=== PATIENT | male | born 1965 | race Caucasian/White ===

== ENCOUNTER 2020-04-06 12:51 | Inpatient (IN) | payer OTHER, SELFPAY ==
[2020-04-06] VITALS (7 sets, daily range): BP systolic 118–161; BP diastolic 71–96; PULSE 81–89; RESP 16–18; TEMP 36.2–36.9; O2SAT 94–97; BMI 30.4
--- NOTE | ~2020-04-06 | US_ITS ---
EXAMINATION: US EXTRACRANIAL CAROTID DUPLEX, BILATERAL CLINICAL INFORMATION: TIA. Evaluate for carotid stenosis. COMPARISON: None TECHNIQUE: Real-time ultrasound and Doppler techniques (integrating B-mode 2-D vascular images, Doppler spectral analysis and color-flow Doppler imaging) were utilized to interrogate the extracranial carotid arteries, the vertebral arteries and proximal subclavian arteries bilaterally. The degree of stenosis is determined by criteria similar to NASCET. FINDINGS: Right Side: 1. There is mild atherosclerotic plaque seen in the bifurcation/proximal ICA region. 2. The common carotid artery PSV proximally is 166 cm/s and distally 9 0 cm/s. 3. The proximal internal carotid artery velocities are 94 cm/s systolic and 34 cm/s diastolic. 4. The proximal external carotid artery PSV is 128 cm/s. 5. The vertebral artery shows antegrade flow. 6. The subclavian artery waveforms are artery waveforms are normal. Left Side: 1. There is mild atherosclerotic plaque seen in the bifurcation/proximal ICA region. 2. The common carotid artery PSV proximally is 151 cm/s and distally 107 cm/s. 3. The proximal internal carotid artery velocities are 68 cm/s systolic and 26 cm/s diastolic. 4. The proximal external carotid artery PSV is 116 cm/s. 5. The vertebral artery shows antegrade flow. 6. The subclavian artery waveforms are normal. US/US carotid duplex BI IMPRESSION: 1. RIGHT: Mild atherosclerotic plaque. Mild 0-49% right ICA stenosis by peak systolic velocity criteria. 2. LEFT: Mild atherosclerotic plaque. Mild 0-49% left ICA stenosis by peak systolic velocity criteria.
--- NOTE | ~2020-04-06 | CT_ITS ---
EXAMINATION: CT HEAD WITHOUT CONTRAST CLINICAL INFORMATION: Left arm numbness and vision changes. Symptoms have resolved. COMPARISON: Previous head CT November 2014 TECHNIQUE: Contiguous axial imaging was performed from the skull base to vertex without intravenous administration of contrast. This CT examination was performed using dose optimization techniques as appropriate, variously including the following: *Automated exposure control *Adjustment of mA and/or kV according to patient size (this includes techniques or standardized protocols for targeted exams where dose is matched to indication/reason for exam; i.e. extremities or head) *Use of iterative reconstruction technique DLP: 780 mGy-cm FINDINGS: There is no evidence of acute intracranial hemorrhage or territorial infarction. No abnormal mass effect or midline shift is seen. Alves to white matter differentiation is well preserved. No extra-axial fluid collections are identified. The ventricles are normal in size. There is no abnormal attenuation within the brain parenchyma. The osseous structures and soft tissues are normal. The mastoid air cells and visualized portions of the paranasal sinuses are well aerated. CT/CT head/brain wo con IMPRESSION: Unremarkable exam.
--- NOTE | ~2020-04-06 | MR_ITS ---
EXAMINATION: MR BRAIN WITHOUT CONTRAST CLINICAL INFORMATION: Left arm numbness. Stroke. COMPARISON: CT head from 04/06/2020. TECHNIQUE: MRI of the brain was obtained using routine sequences without contrast. FINDINGS: No focal restricted diffusion is demonstrated to suggest acute or subacute cerebral ischemia. No evidence of acute or chronic hemorrhagic products on heme-sensitive imaging. Nonspecific scattered periventricular and deep white matter T2 FLAIR hyperintensities. Chronic lacunar infarct of the left central maude. The ventricles are normal in morphology and size. No abnormal mass effect. No midline shift. Normal appearance of the pituitary gland. Normal positioning of the cerebellar tonsils. Normal arterial and venous vascular flow voids are present. Normal, homogeneous marrow signal. Mild mucosal thickening of the paranasal sinuses. Mucous retention cyst within the bilateral maxillary sinuses. No signal abnormalities within the mastoids. MR/MR head/brain wo con IMPRESSION: 1. No acute intracranial abnormalities. 2. Nonspecific mild underlying white matter change most commonly seen with underlying microangiopathy. Chronic lacunar infarct of the left central maude.
--- NOTE | 2020-04-06 13:19 | ED.GENADULT ---
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 This did not involve weakness he was always able to move and use his left arm and this resolved after 15-20 minutes. It was associated with a feeling of blurriness and floaters in his visual zacarias, he is not sure if it was 1 eye or both eyes he was able to see throughout the 15-20 minutes, he also felt lightheaded and dizzy during the episode It is now fully resolved and he is back to his normal vision, normal balance and normal feeling and sensation in his left arm It did not involve his left leg, he had no headache he had no trouble forming words and there was no facial asymmetry Patient is on blood thinners he is taking Xarelto for recent pulmonary embolus Patient does have history of CVA in the past <ITZEL Ha Last Filed: 04/06/20 17:14> Related Data Home medications: Home Medications Medication Instructions Recorded Confirmed Lactobacillus rhamnosus GG 1 cap PO BID 04/06/20 04/06/20 [Culturelle] apixaban [Eliquis] 10 mg PO BID 04/06/20 04/06/20 cefuroxime axetil 500 mg PO BID 04/06/20 04/06/20 <ITZEL Ha Last Filed: 04/06/20 17:14> Allergies/adverse reactions: Allergies Allergy/AdvReac Type Severity Reaction Status Date / Time No Known Allergies Allergy Unverified 10/31/19 18:58 [No Known Allergies*] <ITZEL Ha Last Filed: 04/06/20 17:14> Review of Systems Review of Systems: Positive for left upper extremity tingling and numbness that resolved associated with dizziness and vision changes which also resolved Negatives are no fever no chills no weakness no confusion no difficulty forming words no headache no neck pain no chest pain no shortness of breath, no exertional symptoms no abdominal pain no nausea no vomiting no leg weakness no changes to bowel or bladder no incontinence no rash <ITZEL Ha - Last Filed: 04/06/20 17:14> Yes all other systems are reviewed and are negative <ITZEL Ha - Last Filed: 04/06/20 17:14> [facility] Past Medical History Attestation statement: The following information was validated with the patient. 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 Pulmonary embolism Stroke <ITZEL Ha - Last Filed: 04/06/20 17:14> Social History Social History: Social History Advance Directives: No Advance Directives Information Provided: No <ITZEL Ha - Last Filed: 04/06/20 17:14> Physical Exam Vital Signs: Vital Signs: Last Vital Signs Temp 98.0 F 04/06/20 13:45 Pulse 81 04/06/20 15:22 Resp 18 04/06/20 15:22 BP 123/74 04/06/20 15:22 Pulse Ox 96 04/06/20 15:22 Body Mass Index 30.4 <ITZEL Ha - Last Filed: 04/06/20 17:14> Vital Signs: Last Vital Signs Temp 98.0 F 04/06/20 13:45 Pulse 81 04/06/20 15:22 Resp 18 04/06/20 15:22 BP 123/74 04/06/20 15:22 Pulse Ox 96 04/06/20 15:22 Body Mass Index 30.4 <Hai Lundy MD - Last Filed: 04/06/20 16:23> General appearance is no acute distress comfortable with no facial asymmetry speaking full sentences clearly, comfortable and cooperative The head is normocephalic atraumatic The pharynx is clear The neck is supple The chest is clear to auscultation bilaterally The heart rate and rhythm regular no murmur heard Abdomen is soft nontender Extremities full range of motion x4 Neuro speech and comprehension are normal, no facial asymmetry, A&O x3, balance and gait are normal, cerebellar exam is normal, cranial nerves intact as examine, motor is 5/5 x4 and sensation is intact and symmetrical in upper and lower extremities <ITZEL Ha - Last Filed: 04/06/20 17:14> NIH Stroke Scale Level of Consciousness: Alert <ITZEL Ha - Last Filed: 04/06/20 17:14> Level of Consciousness Questions: Answers both questions correctly <ITZEL Ha - Last Filed: 04/06/20 17:14> Level of Consciousness Commands: Performs both tasks correctly <ITZEL Ha - Last Filed: 04/06/20 17:14> Best Gaze: Normal <ITZEL Ha - Last Filed: 04/06/20 17:14> Visual: No visual loss <ITZEL Ha - Last Filed: 04/06/20 17:14> Motor Arm (Right): No drift <ITZEL Ha - Last Filed: 04/06/20 17:14> Motor Arm (Left): No drift <ITZEL Ha - Last Filed: 04/06/20 17:14> Motor Leg (Right): No drift <ITZEL Ha - Last Filed: 04/06/20 17:14> Motor Leg (Left): No drift <ITZEL Ha - Last Filed: 04/06/20 17:14> Limb Ataxia: Absent <ITZEL Ha - Last Filed: 04/06/20 17:14> Sensory: Normal <ITZEL Ha - Last Filed: 04/06/20 17:14> Best Language: No aphasia <ITZEL Ha - Last Filed: 04/06/20 17:14> Dysarthia: Normal <ITZEL Ha - Last Filed: 04/06/20 17:14> Extinction and Inattention: No abnormality <ITZEL Ha - Last Filed: 04/06/20 17:14> Course Course Course Narrative: I have discussed the case and management with the BRIANA <Hai Lundy MD - Last Filed: 04/06/20 16:23> Reevaluation(s) Reevaluation #1: I agree with the history. My physical exam is well developed well nourished, normal cephalic, PERRL, EOMI, normal pharynx, supple neck, lungs clear, CV RRR, abdomen nontender, Neuro intact and nonfocal, psychiatric at baseline. NIH stroke scale 0 at the current time. with recent hypercoagulation due to COVID and symptoms sound like TIA will admit to hospitalist <aHi Lundy MD - Last Filed: 04/06/20 16:23> Medical Decision Making MDM Narrative Medical decision making narrative: Patient remains comfortable stable and unchanged throughout ER visit, concerned for TIA and patient with history of prior CVA who had resolved symptoms of left arm numbness and vision changes was admitted to the hospital for TIA <ITZEL Ha - Last Filed: 04/06/20 17:14> Lab Data Lab results reviewed: Yes I reviewed the patient's lab results. <ITZEL Ha - Last Filed: 04/06/20 17:14> Result diagrams: : 04/06/20 13:53 04/06/20 13:53 <ITZEL Ha - Last Filed: 04/06/20 17:14> Labs: Lab Results 04/06/20 04/06/20 04/06/20 Range/Units 13:53 13:53 13:53 WBC 7.4 (4.8-10.8) X10*3/uL RBC 4.80 (4.60-5.80) X10*6/uL Hgb 13.1 L (14.0-18.0) g/dl Hct 40.1 L (42-52) % MCV 83.5 (80-98) fL MCH 27.3 (27.0-33.0) pg MCHC 32.7 (31.0-36.0) g/dl RDW 12.6 (11.0-16.0) % Plt Count 485 H (160-400) X10*3/uL MPV 9.7 (9.4-12.4) fL Immature Gran % (Auto) 0.4 (0.0-0.4) % Neut % (Auto) 64.7 (45-73) % Lymph % (Auto) 25.6 (20-40) % [place] % (Auto) 7.6 (2-11) % Eos % (Auto) 1.4 (0-4) % Baso % (Auto) 0.3 (0-2) % Lymph # (Auto) 1.9 (1.2-4.9) X10*3/uL [place] # (Auto) 0.6 (0.1-1.2) X10*3/uL Eos # (Auto) 0.1 (0.0-0.4) X10*3/uL Baso # (Auto) 0.0 (0.0-0.2) X10*3/uL Abs Immat Gran (auto) 0.03 (0.00-0.03) X10*3/uL Absolute Neuts (auto) 4.8 (2.0-8.3) X10*3/uL Absolute Nucleated RBC 0.000 (0.0-0.012) X10*3/uL Nucleated RBC % (auto) 0.0 (0.0-0.2) /100WBC PT 14.3 H (10.8-13.0) SEC INR 1.2 H (0.9-1.1) APTT 39.5 H (24.1-38.0) SEC Sodium 142 (135-145) mmol/L Potassium 5.0 (3.3-5.1) mmol/L Chloride 104 (96-108) mmol/L Carbon Dioxide 27 (22-29) mmol/L Anion Gap 16 (12-20) BUN 16 (9-16) mg/dL Creatinine 0.83 (0.5-1.4) mg/dL Estim Creat Clear Calc 140.2 Estimated GFR > 60 Random Glucose 100 (60-115) mg/dL Calcium 9.2 (8.4-10.2) mg/dL Troponin I High Sens (<3.5-35.0) ng/L 04/06/20 Range/Units 13:53 WBC (4.8-10.8) X10*3/uL RBC (4.60-5.80) X10*6/uL Hgb (14.0-18.0) g/dl Hct (42-52) % MCV (80-98) fL MCH (27.0-33.0) pg MCHC (31.0-36.0) g/dl RDW (11.0-16.0) % Plt Count (160-400) X10*3/uL MPV (9.4-12.4) fL Immature Gran % (Auto) (0.0-0.4) % Neut % (Auto) (45-73) % Lymph % (Auto) (20-40) % [place] % (Auto) (2-11) % Eos % (Auto) (0-4) % Baso % (Auto) (0-2) % Lymph # (Auto) (1.2-4.9) X10*3/uL [place] # (Auto) (0.1-1.2) X10*3/uL Eos # (Auto) (0.0-0.4) X10*3/uL Baso # (Auto) (0.0-0.2) X10*3/uL Abs Immat Gran (auto) (0.00-0.03) X10*3/uL Absolute Neuts (auto) (2.0-8.3) X10*3/uL Absolute Nucleated RBC (0.0-0.012) X10*3/uL Nucleated RBC % (auto) (0.0-0.2) /100WBC PT (10.8-13.0) SEC INR (0.9-1.1) APTT (24.1-38.0) SEC Sodium (135-145) mmol/L Potassium (3.3-5.1) mmol/L Chloride (96-108) mmol/L Carbon Dioxide (22-29) mmol/L Anion Gap (12-20) BUN (9-16) mg/dL Creatinine (0.5-1.4) mg/dL Estim Creat Clear Calc Estimated GFR Random Glucose (60-115) mg/dL Calcium (8.4-10.2) mg/dL Troponin I High Sens < 3.5 (<3.5-35.0) ng/L <ITZEL Ha - Last Filed: 04/06/20 17:14> Lab Results 04/06/20 04/06/20 04/06/20 Range/Units 13:53 13:53 13:53 WBC 7.4 (4.8-10.8) X10*3/uL RBC 4.80 (4.60-5.80) X10*6/uL Hgb 13.1 L (14.0-18.0) g/dl Hct 40.1 L (42-52) % MCV 83.5 (80-98) fL MCH 27.3 (27.0-33.0) pg MCHC 32.7 (31.0-36.0) g/dl RDW 12.6 (11.0-16.0) % Plt Count 485 H (160-400) X10*3/uL MPV 9.7 (9.4-12.4) fL Immature Gran % (Auto) 0.4 (0.0-0.4) % Neut % (Auto) 64.7 (45-73) % Lymph % (Auto) 25.6 (20-40) % [place] % (Auto) 7.6 (2-11) % Eos % (Auto) 1.4 (0-4) % Baso % (Auto) 0.3 (0-2) % Lymph # (Auto) 1.9 (1.2-4.9) X10*3/uL [place] # (Auto) 0.6 (0.1-1.2) X10*3/uL Eos # (Auto) 0.1 (0.0-0.4) X10*3/uL Baso # (Auto) 0.0 (0.0-0.2) X10*3/uL Abs Immat Gran (auto) 0.03 (0.00-0.03) X10*3/uL Absolute Neuts (auto) 4.8 (2.0-8.3) X10*3/uL Absolute Nucleated RBC 0.000 (0.0-0.012) X10*3/uL Nucleated RBC % (auto) 0.0 (0.0-0.2) /100WBC PT 14.3 H (10.8-13.0) SEC INR 1.2 H (0.9-1.1) APTT 39.5 H (24.1-38.0) SEC Sodium 142 (135-145) mmol/L Potassium 5.0 (3.3-5.1) mmol/L Chloride 104 (96-108) mmol/L Carbon Dioxide 27 (22-29) mmol/L Anion Gap 16 (12-20) BUN 16 (9-16) mg/dL Creatinine 0.83 (0.5-1.4) mg/dL Estim Creat Clear Calc 140.2 Estimated GFR > 60 Random Glucose 100 (60-115) mg/dL Calcium 9.2 (8.4-10.2) mg/dL Troponin I High Sens (<3.5-35.0) ng/L 04/06/20 Range/Units 13:53 WBC (4.8-10.8) X10*3/uL RBC (4.60-5.80) X10*6/uL Hgb (14.0-18.0) g/dl Hct (42-52) % MCV (80-98) fL MCH (27.0-33.0) pg MCHC (31.0-36.0) g/dl RDW (11.0-16.0) % Plt Count (160-400) X10*3/uL MPV (9.4-12.4) fL Immature Gran % (Auto) (0.0-0.4) % Neut % (Auto) (45-73) % Lymph % (Auto) (20-40) % [place] % (Auto) (2-11) % Eos % (Auto) (0-4) % Baso % (Auto) (0-2) % Lymph # (Auto) (1.2-4.9) X10*3/uL [place] # (Auto) (0.1-1.2) X10*3/uL Eos # (Auto) (0.0-0.4) X10*3/uL Baso # (Auto) (0.0-0.2) X10*3/uL Abs Immat Gran (auto) (0.00-0.03) X10*3/uL Absolute Neuts (auto) (2.0-8.3) X10*3/uL Absolute Nucleated RBC (0.0-0.012) X10*3/uL Nucleated RBC % (auto) (0.0-0.2) /100WBC PT (10.8-13.0) SEC INR (0.9-1.1) APTT (24.1-38.0) SEC Sodium (135-145) mmol/L Potassium (3.3-5.1) mmol/L Chloride (96-108) mmol/L Carbon Dioxide (22-29) mmol/L Anion Gap (12-20) BUN (9-16) mg/dL Creatinine (0.5-1.4) mg/dL Estim Creat Clear Calc Estimated GFR Random Glucose (60-115) mg/dL Calcium (8.4-10.2) mg/dL Troponin I High Sens < 3.5 (<3.5-35.0) ng/L <Hai Lundy MD - Last Filed: 04/06/20 16:23> Imaging Data CT scan - head: Radiologist's impression: FINDINGS: There is no evidence of acute intracranial hemorrhage or territorial infarction. No abnormal mass effect or midline shift is seen. Alves to white matter differentiation is well preserved. No extra-axial fluid collections are identified. The ventricles are normal in size. There is no abnormal attenuation within the brain parenchyma. The osseous structures and soft tissues are normal. The mastoid air cells and visualized portions of the paranasal sinuses are well aerated. CT/CT head/brain wo con IMPRESSION: Unremarkable exam. <ITZEL Ha - Last Filed: 04/06/20 17:14> ECG Data Interpretation: EKG was normal sinus rhythm, QT was normal, no acute ST-T changes, NE interval was normal <ITZEL Ha - Last Filed: 04/06/20 17:14> Discharge Plan Discharge Clinical Impression: Brain TIA <ITZEL Ha - Last Filed: 04/06/20 17:14> Patient Disposition: Admitted As Inpatient <ITZEL aH - Last Filed: 04/06/20 17:14>
--- NOTE | 2020-04-06 13:21 | ECG_ITS ---
Test Reason : DIZZYNESS Blood Pressure : / mmHG Vent. Rate : 083 BPM Atrial Rate : 083 BPM P-R Int : 166 ms QRS Dur : 084 ms QT Int : 386 ms P-R-T Axes : 049 -30 023 degrees QTc Int : 453 ms Normal sinus rhythm Left axis deviation Abnormal ECG When compared with ECG of 03-DEC-2014 20:33, No significant change was found Referred By: Jeremias Kohler Electronically Signed By:SANTOS LOPEZ MD
--- NOTE | 2020-04-06 13:40 | PC.NURSE ---
No unlat neuro deficits at this time. reports left arm numbness and changes in vision at 1205 but resolved almost completely at 1230 whem EMS arrived. Pt also reports hemoptysis which has been improving. on eliquis. nsr on monitor. aware of plan of care. will ring if sx return.
[2020-04-06 14:05] LABS: MANUAL DIFF FLAG NO
[2020-04-06 14:06] LABS: Hematocrit 40.1 % (42-52); Hemoglobin 13.1 g/dl (14.0-18.0); Mean Corpuscular Hemoglobin 27.3 pg (27.0-33.0); Mean Corpuscular Volume 83.5 fL (80-98); White Blood Count 7.4 X10*3/uL (4.8-10.8)
[2020-04-06 14:07] LABS: Basophils Percent Auto 0.3 % (0-2); Eosinophils Absolute Auto 0.1 X10*3/uL (0.0-0.4); Eosinophils Percent Auto 1.4 % (0-4); Imm Gran Abs Auto 0.03 X10*3/uL (0.00-0.03); Imm Gran Pct Auto 0.4 % (0.0-0.4); Lymphocytes Absolute Auto 1.9 X10*3/uL (1.2-4.9); Lymphocytes Percent Auto 25.6 % (20-40); Mean Corpuscular HGB Conc 32.7 g/dl (31.0-36.0); Mean Platelet Volume 9.7 fL (9.4-12.4); Monocytes Absolute Auto 0.6 X10*3/uL (0.1-1.2); Monocytes Percent Auto 7.6 % (2-11); Neutrophils Absolute Auto 4.8 X10*3/uL (2.0-8.3); Neutrophils Percent Auto 64.7 % (45-73); Platelet Count 485 X10*3/uL (160-400); Red Cell Distribution Width 12.6 % (11.0-16.0)
[2020-04-06 14:13] LABS: INTERNATIONAL NORM RATIO 1.2 (0.9-1.1); Prothrombin Time 14.3 SEC (10.8-13.0)
[2020-04-06 14:15] LABS: Partial Thromboplastin Time 39.5 SEC (24.1-38.0)
[2020-04-06 14:51] LABS: Anion Gap 16 (12-20); Blood Urea Nitrogen 16 mg/dL (9-16); Calcium 9.2 mg/dL (8.4-10.2); Carbon Dioxide 27 mmol/L (22-29); Chloride 104 mmol/L (96-108); Creatinine Clr Calc Pharmacy 140.2; Estimated Glomerular Filt Rate > 60; Glucose Random 100 mg/dL (60-115); Sodium 142 mmol/L (135-145)
[2020-04-06 14:55] LABS: Troponin-I High Sensitivity < 3.5 ng/L (<3.5-35.0)
--- NOTE | 2020-04-06 15:23 | PC.NURSE ---
denies any neuro changes. this rn to consult PA regarding INR 1.2
--- NOTE | 2020-04-06 16:15 | PC.NURSE ---
still asymptomatic. agreeable to admission. doc james at bedside.
--- NOTE | 2020-04-06 17:17 | PM.IMHP ---
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 patient denies any fever chills headache chest pain or shortness of breath. 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 for which he underwent thyroidectomy Review of Systems Constitutional: Constitutional: Denies weakness Eyes: Eyes: Denies no additional eye complaints ENT: Reports dizziness Cardiovascular: Cardiovascular: Denies leg edema and Denies dyspnea Respiratory: Respiratory: Denies dyspnea Gastrointestinal: Gastrointestinal: Denies vomiting Musculoskeletal: Musculoskeletal: Reports no additional musculoskeletal complaints Neurologic: Reports dizziness, Denies focal weakness and Denies weakness [facility] Medical History (Updated 04/07/20 @ 16:55 by Yuli Powell MD) Alcohol dependence Anxiety COVID-19 Depression Goiter High cholesterol 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 Pulmonary embolism Stroke Family History (Updated 04/06/20 @ 17:27 by Nicholas Rios MD) Other HTN (hypertension) Surgical History History of palate surgery Social History Household Members: Spouse Housing: House Do you presently have visiting nurse or other home services: Yes Alcohol intake: former Smoking Status: Former smoker Smoked in Last 30 Days: No Use of substances other than those prescribed or required for medical reasons: Yes Substance Use Type Other:: edible a few times a year Substance Use Frequency: Occasionally Currently Displaying Signs/Symptoms of Drug Intoxication Withdrawal: No Have you been hit, kicked, punched, or otherwise hurt by someone within the past year? If so, by whom?: No Do you feel safe in your current relationship?: Yes Is there a partner from a previous relationship who is making you feel unsafe now?: No Are you made to feel afraid or neglected: No Advance Directives: No Advance Directives Information Provided: No Do you have thoughts of harming others: None Do you have a plan to hurt others: No Plan Recently lost weight without trying: No service: No Current occupational status: employed Meds Allergies Allergy/AdvReac Type Severity Reaction Status Date / Time No Known Allergies Allergy Unverified 10/31/19 18:58 [No Known Allergies*] Active Medications: Current Medications Generic Name Dose Route Start Last Admin Trade Name Freq PRN Reason Stop Dose Admin Pharmacy Consult 1 each 04/06/20 16:47 Consult Rx Perform Med Rec MISCELLANE ONCE PRN Consult order Home Medications Medication Instructions Recorded Confirmed Last Taken Type Culturelle 1 cap PO BID 04/06/20 04/06/20 04/06/20 History Eliquis 10 mg PO BID 04/06/20 04/06/20 04/06/20 08:00 History cefuroxime axetil 500 mg PO BID 04/06/20 04/06/20 04/06/20 16:55 History Physical Exam Vital Signs and Narrative: Vital Signs: Last Vital Signs Temp 98.0 F 04/06/20 13:45 Pulse 81 04/06/20 15:22 Resp 18 04/06/20 15:22 BP 123/74 04/06/20 15:22 Pulse Ox 96 04/06/20 15:22 Body Mass Index 30.4 Const: General: cooperative and no acute distress Orientation/consciousness: patient oriented x3 Eyes: General: appearance normal, both eyes and all related structures Neck: Yes normal visual inspection Resp: Effort & Inspection: normal respiratory effort Cardio: Jugular venous distension: no JVD Rate: regular rate Heart sounds: S1 normal heart sound present and S2 normal heart sound present GI: Palpation (GI): Soft to palpation Skin: General skin exam: no rashes or lesions noted Neuro: General: patient oriented x3 Motor exam (neuro): 5/5 motor strength present throughout Results Labs CBC and Chem 7: 04/07/20 05:36 04/07/20 05:36 Labs: Laboratory Results - last 24 hr 04/06/20 04/06/20 04/06/20 13:53 13:53 13:53 MCV 83.5 MCH 27.3 MCHC 32.7 RDW 12.6 Plt Count 485 H MPV 9.7 Immature Gran % (Auto) 0.4 Neut % (Auto) 64.7 Lymph % (Auto) 25.6 [place] % (Auto) 7.6 Eos % (Auto) 1.4 Baso % (Auto) 0.3 Lymph # (Auto) 1.9 [place] # (Auto) 0.6 Eos # (Auto) 0.1 Baso # (Auto) 0.0 Abs Immat Gran (auto) 0.03 Absolute Neuts (auto) 4.8 Absolute Nucleated RBC 0.000 Nucleated RBC % (auto) 0.0 PT 14.3 H INR 1.2 H APTT 39.5 H Anion Gap 16 Estim Creat Clear Calc 140.2 Estimated GFR > 60 Random Glucose 100 Calcium 9.2 Troponin I High Sens 04/06/20 13:53 MCV MCH MCHC RDW Plt Count MPV Immature Gran % (Auto) Neut % (Auto) Lymph % (Auto) [place] % (Auto) Eos % (Auto) Baso % (Auto) Lymph # (Auto) [place] # (Auto) Eos # (Auto) Baso # (Auto) Abs Immat Gran (auto) Absolute Neuts (auto) Absolute Nucleated RBC Nucleated RBC % (auto) PT INR APTT Anion Gap Estim Creat Clear Calc Estimated GFR Random Glucose Calcium Troponin I High Sens < 3.5 Imaging Radiologist's Impressions: Impressions Head CT 04/06/20 13:21 IMPRESSION: Unremarkable exam. Assessment and Plan (1) Brain TIA: Problem details: Unlikely to be TIA although with a history of recent Covid and hypercoagulability, this is a possibility although he is adequately anticoagulated with an requests Status: Acute (2) History of palate surgery: Status: Acute 55-year-old male presented with left arm numbness and tingling associated with blurry vision and dizziness that lasted for 15-20 minutes resolved now, CT head on admission shows no acute abnormality patient was admitted for for TIA left arm numbness associated with blurry vision and dizziness rule out stroke versus TIA CT head on admission shows no acute abnormality will get neurology evaluation will start statin continue Eliquis will get carotid ultrasound monitor neuro check lipid profile Recently diagnosed with pulmonary embolism after COVID continue Eliquis history of hyperlipidemia taken off from statin history of palatine cancer status post surgery DVT prophylaxis with Eliquis patient wishes to be full code
[2020-04-06 18:02] LABS: COVID-19 Test Negative (Negative); IDNOW Serial# 9DD0AD1C
--- NOTE | 2020-04-06 19:55 | PC.NURSE ---
attempted to give report. elidia de leon.
--- NOTE | 2020-04-06 20:07 | PC.NURSE ---
[facility]
[2020-04-06] MEDS: Apixaban 5 MG TABLET 10 MG PO (20:20)
[2020-04-07 03:28] VITALS: BP 127/82; PULSE 82; RESP 18; TEMP 36.6; O2SAT 95
[2020-04-07 03:36] VITALS: BMI 30.7
[2020-04-07 06:57] LABS: MANUAL DIFF FLAG NO
[2020-04-07 07:09] LABS: Basophils Percent Auto 0.3 % (0-2); Eosinophils Absolute Auto 0.2 X10*3/uL (0.0-0.4); Eosinophils Percent Auto 2.2 % (0-4); Hematocrit 40.6 % (42-52); Hemoglobin 13.2 g/dl (14.0-18.0); Imm Gran Abs Auto 0.03 X10*3/uL (0.00-0.03); Imm Gran Pct Auto 0.4 % (0.0-0.4); Lymphocytes Absolute Auto 2.1 X10*3/uL (1.2-4.9); Lymphocytes Percent Auto 31.1 % (20-40); Mean Corpuscular HGB Conc 32.5 g/dl (31.0-36.0); Mean Corpuscular Hemoglobin 26.9 pg (27.0-33.0); Mean Corpuscular Volume 82.9 fL (80-98); Mean Platelet Volume 9.8 fL (9.4-12.4); Monocytes Absolute Auto 0.7 X10*3/uL (0.1-1.2); Monocytes Percent Auto 9.8 % (2-11); Neutrophils Absolute Auto 3.8 X10*3/uL (2.0-8.3); Neutrophils Percent Auto 56.2 % (45-73); Platelet Count 492 X10*3/uL (160-400); Red Cell Distribution Width 12.8 % (11.0-16.0); White Blood Count 6.7 X10*3/uL (4.8-10.8)
[2020-04-07 07:39] VITALS: BP 149/88; PULSE 84; RESP 16; TEMP 36.1; O2SAT 93
[2020-04-07 07:49] LABS: Anion Gap 16 (12-20); Blood Urea Nitrogen 16 mg/dL (9-16); Calcium 9.2 mg/dL (8.4-10.2); Carbon Dioxide 26 mmol/L (22-29); Chloride 105 mmol/L (96-108); Cholesterol 200 mg/dL; Creatinine Clr Calc Pharmacy 134.4; Estimated Glomerular Filt Rate > 60; Glucose Random 100 mg/dL (60-115); HDL Cholesterol 30 mg/dL; LDL Cholesterol Calculated 130 mg/dl; Potassium 4.8 mmol/L (3.3-5.1); Sodium 142 mmol/L (135-145); Triglycerides 202 mg/dL
--- NOTE | 2020-04-07 08:41 | MHC.CM.PN ---
pt lives c his in their home . he reports he is independent in his care. he works a job and drives a car. pt's will provide transport home. pt denies the need for vna at dc. dc plan is home no svcs. cm to cont. to follow.
[2020-04-07] MEDS: Apixaban 5 MG TABLET 10 MG PO (11:48)
[2020-04-07] MEDS: Atorvastatin Calcium 80 MG TABLET PO (11:48)
[2020-04-07 11:49] VITALS: BP 139/84; PULSE 90; RESP 16; TEMP 36.3; O2SAT 94
[2020-04-07] MEDS: LORazepam 2 MG/ML VIAL 0.5 MG IVPUSH (13:20)
[2020-04-07 15:23] VITALS: BP 134/71; PULSE 97; RESP 15; TEMP 36.5; O2SAT 95
--- NOTE | 2020-04-07 16:02 | MHC.STROKE ---
PATIENT VIA [facility] PRE-NOTIFIED AT 1245. ONSET OF LEFT ARM NUMBNESS AND VISUAL DISTURBANCE AT 1217. SYMPTOMS LASTED 20 MINUTES. FAST EXAM = 0, NO STROKE ALERT CALLED IN. I MET WITH THE PATIENT TODAY AND WE DISCUSSED HIS PMH AND RISK FACTORS. 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 HIS RECENT COVID+ HOSPITALIZATION FOR PNEUMONIA AND PE. ON ELIQUIS THEREFORE EXCLUDED FROM TPA. ALSO RESOLUTION OF SYMPTOMS. NO FURTHER SYMPTOMS SINCE ADMISSION. MRI DONE, NO ACUTE STROKE. HIS LDL IS 130 AND HE WILL START LIPITOR 40MG. 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 HE READ OVER THE STROKE BOOKLET AND I ANSWERED HIS QUESTIONS. I DID GO SEE HIM TWICE TODAY. NEUROLOGY CONSULT PENDING, THEN POSSIBLE DISCHARGE.
--- NOTE | 2020-04-07 16:51 | P.CNNE_ITS ---
History of Present Illness Data of Consult Service Date: 04/07/20 Primary Care Provider: Unknown Physician HPI Reason for consult: Transient visual disturbance and left hand numbness for 20 min. This is a 55-year-old man with a history of hyperlipidemia who was diagnosed with Covid about 3 weeks ago and was found to have a pleural effusion and pneumonia and pulmonary embolism and was put on anticoagulants. 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 There was no facial droop, speech problem or weakness. The episode lasted about 20 min. and subsided and he had some headache after. There is no previous history of migraine and no family history of migraine. He was brought to the emergency room he is already on Shirin Qwest. 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 His that carotid ultrasound did not show any hemodynamically significant disease and he feels back to normal. Review of Systems Eyes: Eyes: Reports no additional eye complaints ENT: Reports system reviewed and no additional complaints, except as documented and Reports Normal hearing present Cardiovascular: Cardiovascular: Reports no additional cardiovascular c omplaints Respiratory: Respiratory: Reports no additional respiratory complaints Gastrointestinal: Gastrointestinal: Reports no additional gastrointestinal complaints Genitourinary: Genitourinary: Reports no additional male genitourinary complaints Musculoskeletal: Musculoskeletal: Reports no additional musculoskeletal complaints Integumentary/Breasts: Skin/Breast: Reports system reviewed and no additional complaints, except as docu Neurologic: Reports as per HPI and Reports Normal hearing present Psychiatric: Psychiatric: Reports as per HPI Endocrine: Endocrine: Reports no additional endocrine complaints Hematologic/Lymphatic: Hematologic/Lymphatic: Reports no additional hematologic/lymphatic complaints Allergic/Immunologic: Allergic/Immunologic: Reports no additional allergic/immunologic complaints [facility] Past Medical History Medical History (Updated 04/07/20 @ 16:55 by Yuli Powell MD) Alcohol dependence Anxiety COVID-19 Depression Goiter High cholesterol 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 Pulmonary embolism Stroke Family History Family History (Updated 04/06/20 @ 17:27 by Nicholas Rios MD) Other HTN (hypertension) Surgical History Surgical History History of palate surgery Social History Social History Household Members: Spouse Housing: House Do you presently have visiting nurse or other home services: Yes Alcohol intake: former Smoking Status: Former smoker Smoked in Last 30 Days: No Use of substances other than those prescribed or required for medical reasons: Yes Substance Use Type Other:: edible a few times a year Substance Use Frequency: Occasionally Currently Displaying Signs/Symptoms of Drug Intoxication Withdrawal: No Have you been hit, kicked, punched, or otherwise hurt by someone within the past year? If so, by whom?: No Do you feel safe in your current relationship?: Yes Is there a partner from a previous relationship who is making you feel unsafe now?: No Are you made to feel afraid or neglected: No Advance Directives: No Advance Directives Information Provided: No Do you have thoughts of harming others: None Do you have a plan to hurt others: No Plan Recently lost weight without trying: No service: No Current occupational status: employed Meds Allergies Allergy/AdvReac Type Severity Reaction Status Date / Time No Known Allergies Allergy Unverified 10/31/19 18:58 [No Known Allergies*] Active Medications: Current Medications Generic Name Dose Route Start Last Admin Trade Name Freq PRN Reason Stop Dose Admin Apixaban 10 mg 04/06/20 21:00 04/07/20 11:48 Apixaban 5 Mg Tablet PO 10 mg BID KATTY Administration Atorvastatin Calcium 80 mg 04/07/20 09:00 04/07/20 11:48 Atorvastatin Calcium 80 Mg Tablet PO 80 mg DAILY KATTY Administration Pharmacy Consult 1 each 04/06/20 16:47 Consult Rx Perform Med Rec MISCELLANE ONCE PRN Consult order Home Medications Medication Instructions Recorded Confirmed Last Taken Type Lactobacillus rhamnosus GG 1 cap PO BID 04/06/20 04/06/20 04/06/20 History [Culturelle] apixaban [Eliquis] 10 mg PO BID 04/06/20 04/06/20 04/06/20 08:00 History cefuroxime axetil 500 mg PO BID 04/06/20 04/06/20 04/06/20 16:55 History Physical Exam Vital Signs: Vital Signs: Last Vital Signs Temp 97.7 F 04/07/20 15:23 Pulse 97 04/07/20 15:23 Resp 15 04/07/20 15:23 BP 134/71 04/07/20 15:23 Pulse Ox 95 04/07/20 15:23 Body Mass Index 30.7 Const: General: cooperative, comfortable, no acute distress, well developed, alert and awake Nutritional Appearance: well nourished Orientation/consciousness: oriented to person, oriented to place and oriented to time Limitations: no limitations HENMT: Head: Yes normal to inspection, Yes normocephalic and Yes atraumatic Ears: hearing grossly normal bilaterally General nose exam: Normal external nose present Face and sinus: Yes normal facial exam Mouth: Normal oral and palatal mucosa present Eyes: General: appearance normal, both eyes and all related structures Visual Zacarias: normal visual zacarias by confrontation Alignment and Position: alignment normal Periorbital: periorbital findings normal Eyelids: Yes eyelids normal Conjunctivae: conjunctivae normal Sclerae: sclerae normal Corneas: corneas normal Pupils: Equal, round and reactive pupils present and Pupil accommodation reflex normal EOM: EOMs intact bilaterally Direct Ophthalmoscopy: normal light reflex Neck: Neck: Yes normal visual inspection, Yes full ROM and Yes no meningeal signs Thyroid: Thyroid normal Carotids: normal carotid upstroke and bounding pulses Chest: Chest palpation & inspection: normal inspection of the chest Resp: Effort & Inspection: normal respiratory effort Auscultation: clear to auscultation bilaterally Cardio: Rate: regular rate Rhythm: regular rhythm Heart sounds: S1 normal heart sound present and S2 normal heart sound present Peripheral pulses: Peripheral pulses 2+ throughout GI: Inspection: Yes normal to inspection Percussion: Yes normal to percussion Auscultation: normal bowel sounds Rectal Exam - Male: Yes deferred Back/Spine/Pelvis: Cervical Spine: normal cervical lordosis and cervical ROM normal Thoracic/Lumbar Spine: thoracic and lumbar spine normal to inspection Skin: General skin exam: no rashes or lesions noted Neuro: General: oriented to person, oriented to place, oriented to time, gait normal, tone normal, moves all extremities, Normal light touch and pain sensation, no meningeal signs, no focal motor deficits, CN's II-XI intact bilaterally, normal sensation to monofilament and deep tendon reflexes 2+ bilaterally Cranial nerves: Yes CN's II-XII intact bilaterally, Yes Equal, round and reactive pupils present, Yes Bilaterally intact EOM present, Yes Nystagmus not present, Yes Normal facial strength present, Yes Midline tongue present, Yes Normal gag reflex present, Yes Symmetric palate elevation present, Yes Normal hearing present and Yes Ability to bilaterally rotate head present Cognition (Neuro): normal cognition Speech: Other speech findings present (Neuro) Gait exam (Neuro): Normal gait present Motor exam (neuro): 5/5 motor strength present throughout, Pronator motor function not present, no tremor noted, no asterixis, Motor fasciculations not present, Normal motor muscle tone present throughout and Motor abnormalities not present Sensory Exam: Bilaterally intact graphesthesia Deep tendon reflexes (DTR's): Right triceps reflex intensity grade: 2+, Left triceps reflex intensity grade: 2+, Rt Biceps (C5, C6): 2+, Left biceps reflex intensity grade: 2+, Right brachioradialis reflex intensity grade: 2+, Left brachioradialis reflex intensity grade: 2+, Right patellar reflex intensity grade: 2+, Left patellar reflex intensity grade: 2+, Right ankle reflex intensity grade: 2+ and Left ankle reflex intensity grade: 2+ Plantar Reflex Responses: downgoing: right, left and bilateral Coordination: [id number] test normal, [id number] test normal, tandem gait normal and Romberg test negative Pupils: Normal pupillary reactivity/response: bilateral Extrem: General: Yes normal to inspection, Yes normal exam except as noted and Yes no pedal edema Psych: Appearance: grossly normal Mental Status: mental status grossly normal Speech and movement: Normal speech and movement present and Clear speech present Affect: normal affect Attitude: cooperative Thought process: Normal thought process present Results Labs CBC & Chem 7: 04/07/20 05:36 04/07/20 05:36 Labs: Short CBC 04/07/20 Range/Units 05:36 WBC 6.7 (4.8-10.8) X10*3/uL Hgb 13.2 L (14.0-18.0) g/dl Hct 40.6 L (42-52) % Plt Count 492 H (160-400) X10*3/uL BMP 04/07/20 05:36 Sodium 142 Potassium 4.8 Chloride 105 Carbon Dioxide 26 BUN 16 Creatinine 0.87 Calcium 9.2 Assessment and Plan (1) Migraine equivalent: Problem details: History of visual disturbance and transient left arm numbness along with the headache is highly suggestive of a migraine equivalent. TIA cannot be ruled out. Status: Acute (2) Brain TIA: Problem details: Unlikely to be TIA although with a history of recent Covid and hypercoagulability, this is a possibility although he is adequately anticoagulated with an requests Status: Acute No further workup necessary. Continue statins and aspirin 81 mg. (3) Pulmonary embolism: Status: Acute Continue anticoagulation Procedures Date of Service Date of Service: 04/07/20
--- NOTE | 2020-04-07 17:29 | P.DS_ITS ---
DS: Providers Provider Date of Service: 04/09/20 Date of admission: 04/06/20 17:26 Primary care physician: Unknown Physician Consults: 04/06/20 17:26 Consult to Neurology Routine Consulting Provider: Leo Wilcox Reason for consultation: TIA DS: Diagnosis Discharge Diagnosis (1) Migraine equivalent: Status: Acute Problem details: History of visual disturbance and transient left arm numbness along with the headache is highly suggestive of a migraine equivalent. TIA cannot be ruled out. (2) Brain TIA: Status: Acute Problem details: Unlikely to be TIA although with a history of recent Covid and hypercoagulability, this is a possibility although he is adequately anticoagulated with an requests (3) Pulmonary embolism: Status: Acute DS: Medications Discharge Medications Home Medications: Home Medications Medication Instructions Recorded Confirmed Culturelle 1 cap PO BID 04/06/20 04/06/20 Eliquis 10 mg PO BID 04/06/20 04/06/20 cefuroxime axetil 500 mg PO BID 04/06/20 04/06/20 Previous Rx's Medication Instructions Recorded atorvastatin [Lipitor] 40 mg PO BEDTIME #30 tab 04/07/20 DS: Summary Hospital Course Hospital Course: HPI 55 y o m presented with left arm numbness that lasted for 15-20 minutes, 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 patient denies any fever chills headache chest pain or shortness of breath. 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 for which he underwent thyroidectomy hospital course 55-year-old male admitted with episode of left arm numbness and blurred vision, CT head on admission shows no acute infarct, patient was admitted to telemetry for possible TIA versus stroke, patient's symptoms were resolved, carotid ultrasound shows no significant stenosis, MRI brain shows no acute infarct, patient was seen by Neurology reconciled possible TIA from COVID hypercoagulability, lipid profile was checked found to have elevated cholesterol and LDL, patient was started on statins, patient was stable discharged home on statin and continued on Eliquis for pulmonary embolism, patient will follow-up PCP as outpatient Time Spent with Patient Time attestation: Total time spent providing and/or coordinating discharge services: Discharge coordination time: Greater than 30 minutes Quality: Stroke Pt Provided Written Stroke Discharge Instructions: Patient given written information Physical Exam Vital Signs: Vital Signs: Last Vital Signs Temp 97.7 F 04/07/20 15:23 Pulse 97 04/07/20 15:23 Resp 15 04/07/20 15:23 BP 134/71 04/07/20 15:23 Pulse Ox 95 04/07/20 15:23 Body Mass Index 30.7 DS: Data Data Completed and Pending Labs on day of discharge: Laboratory Results - last 24 hr 04/06/20 04/07/20 04/07/20 17:26 05:36 05:36 WBC 6.7 RBC 4.90 Hgb 13.2 L Hct 40.6 L MCV 82.9 MCH 26.9 L MCHC 32.5 RDW 12.8 Plt Count 492 H MPV 9.8 Immature Gran % (Auto) 0.4 Neut % (Auto) 56.2 Lymph % (Auto) 31.1 [place] % (Auto) 9.8 Eos % (Auto) 2.2 Baso % (Auto) 0.3 Lymph # (Auto) 2.1 [place] # (Auto) 0.7 Eos # (Auto) 0.2 Baso # (Auto) 0.0 Abs Immat Gran (auto) 0.03 Absolute Neuts (auto) 3.8 Absolute Nucleated RBC 0.000 Nucleated RBC % (auto) 0.0 Sodium 142 Potassium 4.8 Chloride 105 Carbon Dioxide 26 Anion Gap 16 BUN 16 Creatinine 0.87 Estim Creat Clear Calc 134.4 Estimated GFR > 60 Random Glucose 100 Calcium 9.2 Triglycerides 202 Cholesterol 200 LDL Cholesterol, Calc 130 HDL Cholesterol 30 COVID-19 (HELEN) Negative COVID-19 Clin Com See Note Discharge Plan Discharge Anticipated Discharge Date/Time: 04/07/20 16:55 Patient Disposition: Home, Self-Care Referrals: Physician,Unknown [Primary Care Provider] - Discharge Medications: New atorvastatin [Lipitor] 40 mg tablet 40 mg PO BEDTIME Qty: 30 RF: 0 Continued Eliquis 5 mg Tablet 10 mg PO BID RF: 0 cefuroxime axetil 500 mg Tablet 500 mg PO BID RF: 0 Culturelle 10 billion cell Capsule 1 cap PO BID RF: 0 Discharge Orders: Discharge Order (Routine); Ordered 04/07/20 Ordered By: Nicholas Rios Activity on Discharge: As tolerated Stand Alone Forms: Patient Portal Discharge page Care Plan Goals: prevent stroke Health Concerns: see above Plan of Treatment: see above Patient Instructions: Transient Ischemic Attack (GEN), Migraine Headache (GEN) Discharge Date/Time: 04/07/20 18:25
== END 2020-04-07 18:25 | disposition home or self-care (01) | DRG 102 ==
LOC: HO.ED 17:10 → HO.EDOVER 17:51 → HO.S3 19:44
PROVIDERS: Physician Assistant Medical; Admitting Provider Internal Medicine; Emergency Provider Internal Medicine; Visit Provider Internal Medicine
DX: G43.109 Migraine with aura, not intractable, without status migrainosus (principal); I26.99 Other pulmonary embolism without acute cor pulmonale; G45.9 Transient cerebral ischemic attack, unspecified; Z20.822 Contact with and (suspected) exposure to COVID-19; E78.5 Hyperlipidemia, unspecified; Z86.16 Personal history of COVID-19; Z87.891 Personal history of nicotine dependence; Z79.01 Long term (current) use of anticoagulants; Z79.899 Other long term (current) drug therapy
CPT/HCPCS: 36415; 70450; 70551; 80048; 80061; 84484; 85025; 85610; 85730; 87635; 93005; 93880; 99285; J2060